=== PATIENT | female | born 2000 | race Caucasian/White ===

== ENCOUNTER 2023-05-10 12:41 | Emergency (ER) | payer MEDICAID, SELFPAY ==
[2023-05-10 12:48] VITALS: BP 121/81; PULSE 71; RESP 15; TEMP 36.6; O2SAT 99; BMI 36.8
[2023-05-10 14:00] VITALS: RESP 16
[2023-05-10 14:02] LABS: Basophils % 0.4 %; Eosinophils # 0.1 10^3/uL (0.0-0.8); Eosinophils % 1.7 %; Hematocrit 43.2 % (37.0-47.0); Hemoglobin 14.1 g/dL (11.5-15.3); Mean Corpuscular HGB Conc 32.6 g/dL (30.0-36.0); Mean Corpuscular Hemoglobin 28.7 pg (28.0-34.0); Mean Platelet Volume 9.2 fL (7.4-10.4); Monocytes # 0.5 10^3/uL (0.2-0.9); Monocytes % 5.7 %; Neutrophils # 5.69 10^3/uL (1.8-7.7); Neutrophils % 68.1 %; Nucleated Red Blood Cells % 0 %; Platelet Count 268 10^3/cmm (130-400); Red Blood Count 4.91 10^6/uL (4.1-5.3); Red Cell Distribution Width 12.3 % (12.1-15.1); White Blood Count 8.4 10^3/uL (4.0-10.0)
--- NOTE | 2023-05-10 14:03 | USR_ITS ---
PROCEDURE INFORMATION: Exam: US , Limited Exam date and time: 05/10/2023 2:52 PM Age: 22 years old Clinical indication: Condition or disease; Lmp or gestational age (weeks): 03/17/2023; Other: Confirm iup; 2nd ; ; Additional info: Confirmed intrauterine LABS AND CLINICAL REPORTS: Last menstrual period start date: 03/17/2023 Gestational age (Established): 7 w 5 d Estimated due date (Established): 12/22/2023 TECHNIQUE: Imaging protocol: Real-time ultrasound of the maternal uterus with image documentation. Exam focused on the clinical indication. COMPARISON: No relevant prior studies available. FINDINGS: Gestation: Intrauterine gestation. BIOMETRY: Gestational age (AUA): 6 w 5 d. EGA based on ultrasound is 6 weeks and 5 days with an SIL of 12/29/2023. MATERNAL: Uterus: Uterus measures 5.1 cm x 10.3 cm . US/US OB limited [id number] IMPRESSION: Intrauterine gestation with an EGA of 6 weeks and 5 days.
--- NOTE | 2023-05-10 14:04 | ED_ITS ---
HPI - General: Chief complaint: Vaginal Bleeding Stated complaint: vaginal bleeding, 7ish weeks Time Seen by Provider: 05/10/23 13:20 Source: patient Mode of arrival: ambulatory History of Present Illness: 22-year-old G2, P1 female at approximately 7 weeks gestation has scheduled appointment with OB but has not yet been seen. Has not had a confirmed intrauterine . Presents emergency room complaining of intermittent bleeding during the first trimester she denies dysuria urgency or frequency no fever sweats chills no other complications or problems she did have problems a subchorionic hemorrhage on her first and had extended periods of bedrest. She also had some issues with progesterone levels. She states she will get what she describes a gush of blood and then some light spotting MD Complaint: vaginal bleeding Onset (ago): hour(s) Location: abdomen Quality: Cramping Relieving factors: none Exacerbating factors: none Vaginal bleeding: light care: none Associated symptoms: Deny abdominal pain, dyspareunia, dysuria, headache(s), malaise, nausea, rash, seizures, short of breath, syncope, vaginal bleeding, vaginal discharge, visual changes, vomiting or weakness Review of Systems Const: Denies: fever(s), chills, fatigue or malaise ENMT: Denies: throat pain, ear or mastoid pain, nasal discharge or nasal congestion Card: Denies: syncope Resp: Denies: dyspnea, productive cough or non-productive cough GI: Denies: abdominal pain, nausea or vomiting : Reports: vaginal bleeding; Denies: dysuria, urinary frequency, urinary urgency, vaginal discharge or dyspareunia Musc: Denies: neck pain or back pain Skin/Breast: Denies: rash or pruritus Neuro: Denies: headache(s) PFSH ED PFSH: Family History Father Diabetes Mother Diabetes Hypertension Thyroid disease Grandmother Diabetes Maternal Stroke Paternal Thyroid disease Maternal Denies family history of Colon cancer Ovarian cancer Heart disease Hypercholesteremia Breast cancer Uterine cancer Physical Exam Const: GENERAL APPEARANCE: cooperative and comfortable ORIENTATION/CONSCIOUSNESS: Yes awake, Yes oriented to person, Yes oriented to place and Yes oriented to time HENMT: COMMON NORMALS: normocephalic, atraumatic and hearing grossly normal bilaterally HEAD & SCALP: normocephalic and atraumatic Resp: COMMON NORMALS: normal respiratory effort, No retractions, No use of accessory muscles and clear to auscultation bilaterally AUSCULTATION: clear to auscultation bilaterally Cardio: COMMON NORMALS: regular rate, regular rhythm and No murmurs present (Cardio) RATE: regular rate RHYTHM: regular rhythm GI: COMMON NORMALS: Soft to palpation and No hepatosplenomegaly present AUSCULTATION: Yes normoactive bowel sounds PALPATION: Yes Soft to palpation, No Tenderness to palpation present (GI), No Guarding due to palpation present (GI) and Yes No hepatosplenomegaly present : SPECULUM EXAM - VAGINA: No vaginal bleeding OB/EXTERNAL & SPECULUM: No vaginal bleeding Extremity: COMMON NORMALS: normal to inspection, capillary refill normal, no clubbing, cyanosis or edema, no calf tenderness and no pedal edema Neuro: SENSORIUM/ORIENTATION: Yes oriented to person, Yes oriented to place and Yes oriented to time Skin: COMMON NORMALS: no rashes or lesions noted GENERAL SKIN EXAM: no rashes or lesions noted Course Vital Signs: Vital signs: Vital Signs Temperature 97.9 F 05/10/23 12:48 Pulse Rate 71 05/10/23 12:48 Respiratory Rate 18 05/10/23 16:31 Blood Pressure 121/81 05/10/23 12:48 Pulse Oximetry 99 05/10/23 12:48 Oxygen Delivery Me thod Room Air 05/10/23 12:48 MDM - OB/Uterine Contractions Medical Decision Making Beta-hCG and ultrasound are reassuring confirms intrauterine on ultrasound. Based on clinical symptoms suspect she has a subchorionic hemorrhage is no active bleeding at this time discharge home follow-up with alcohol law enforcement agent return if has further problems Medical Records I reviewed the patient's medical records. Lab Data I reviewed the patient's lab results. 05/10/23 13:51 05/10/23 13:51 Radiology Impressions Obstetrics Ultrasound 05/10/23 14:03 IMPRESSION: Intrauterine gestation with an EGA of 6 weeks and 5 days. Laboratory Results WBC 8.4 10^3/uL (4.0-10.0) 05/10/23 13:51 RBC 4.91 10^6/uL (4.1-5.3) 05/10/23 13:51 Hgb 14.1 g/dL (11.5-15.3) 05/10/23 13:51 Hct 43.2 % (37.0-47.0) 05/10/23 13:51 MCV 88.0 fl (81-99) 05/10/23 13:51 MCH 28.7 pg (28.0-34.0) 05/10/23 13:51 MCHC 32.6 g/dL (30.0-36.0) 05/10/23 13:51 RDW 12.3 % (12.1-15.1) 05/10/23 13:51 Plt Count 268 10^3/cmm (130-400) 05/10/23 13:51 MPV 9.2 fL (7.4-10.4) 05/10/23 13:51 Neut % (Auto) 68.1 % 05/10/23 13:51 Lymph % (Auto) 24.0 % 05/10/23 13:51 [place] % (Auto) 5.7 % 05/10/23 13:51 Eos % (Auto) 1.7 % 05/10/23 13:51 Baso % (Auto) 0.4 % 05/10/23 13:51 Neut # (Auto) 5.69 10^3/uL (1.8-7.7) 05/10/23 13:51 Lymph # (Auto) 2.0 10^3/uL (0.8-4.8) 05/10/23 13:51 [place] # (Auto) 0.5 10^3/uL (0.2-0.9) 05/10/23 13:51 Eos # (Auto) 0.1 10^3/uL (0.0-0.8) 05/10/23 13:51 Baso # (Auto) 0.0 10^3/uL (0.0-0.1) 05/10/23 13:51 Nucleated RBC % (auto) 0 % 05/10/23 13:51 Nucleated RBCs # 0.0 /100WBC 05/10/23 13:51 Sodium 136 mmol/L (136-145) 05/10/23 13:51 Potassium 3.9 mmol/L (3.5-5.1) 05/10/23 13:51 Chloride 101 mmol/L (98-107) 05/10/23 13:51 Carbon Dioxide 24 mmol/L (22-29) 05/10/23 13:51 Anion Gap 14.9 (5-19) 05/10/23 13:51 BUN 5 mg/dL (6-20) L 05/10/23 13:51 Creatinine 0.6 mg/dL (0.5-0.9) 05/10/23 13:51 GFR Calculation 122.8 mL/min (90-130) 05/10/23 13:51 Glucose 96 mg/dL (65-115) 05/10/23 13:51 Calculated Osmolality 279 mOsm/kg (285-295) L 05/10/23 13:51 Calcium 9.3 mg/dL (8.5-10.5) 05/10/23 13:51 Ser , Semi-Qnt 56800.00 mIU/mL 05/10/23 13:51 Blood Type O Positive 05/10/23 13:47 Rho(D) Type Positive 05/10/23 13:47 Discharge Plan Discharge Patient Disposition: Home Clinical Impression: First trimester bleeding Condition: Stable Prescriptions: No Action prenat.vits,carlton,dts-ttgs-hzmum Tablet 1 tab PO DAILY omeprazole-sodium bicarbonate 40-1.1 mg-gram capsule 1 cap PO DAILY Discharge Orders: Discharge ED (Routine); Ordered 05/10/23 Ordered By: Gilberto France Referrals: Mary Ann Douglas FNP [Primary Care Provider] - Patient Instructions: Opioid Safety, Pain Management Activity Restrictions/Additional Instructions: Pelvic rest avoid any strenuous activities and follow-up with alcohol law enforcement agent as scheduled. Coding Level of Care Code ED Nonprofit Director for [facility]
[2023-05-10 14:45] LABS: Anion Gap 14.9 (5-19); Blood Urea Nitrogen 5 mg/dL (6-20); Calcium 9.3 mg/dL (8.5-10.5); Carbon Dioxide 24 mmol/L (22-29); Chloride 101 mmol/L (98-107); Glomerular Filtration Rate 122.8 mL/min (90-130); Glucose 96 mg/dL (65-115); Osmolality Calculated 279 mOsm/kg (285-295); Potassium 3.9 mmol/L (3.5-5.1); Sodium 136 mmol/L (136-145)
[2023-05-10 16:31] VITALS: RESP 18
== END 2023-05-10 16:32 | disposition home or self-care (01) ==
PROVIDERS: Emergency Provider Family Medicine; PCP Nurse Practitioner Family
DX: O20.9 Hemorrhage in early pregnancy, unspecified (principal); Z3A.01 Less than 8 weeks gestation of pregnancy
CPT/HCPCS: 36415; 76815; 80048; 84702; 85025; 86900; 99284

== ENCOUNTER 2023-05-12 12:09 | Outpatient (CLI) | payer BC, OTHER, SELFPAY ==
--- NOTE | 2023-05-12 13:00 | US_ITS ---
WS: [id number] EARLY OBSTETRICAL ULTRASOUND (<14 WEEKS). HISTORY: O20.9 - Hemorrhage in early , unspecified COMPARISON: 05/10/2023. Transvaginal and transabdominal imaging. Single intrauterine gestational sac is identified. Cardiac activity at 120 BPM. [place]-rump length ayana sures 0.6 cm which corresponds to a gestation of 6w3d. Normal-appearing yolk sac and amnion demonstra wang. No subchorionic hemorrhage. No free fluid. Corpus luteal cyst RIGHT ovary measures 2.5 x 2.4 x 1.6 cm. US/US OB <=14 wk fetus w transvag IMPRESSION: 1. Single intrauterine gestation of 6 weeks 3 days with EDC of 11/01/2024. 2. Normal cardiac activity. 3. No subchorionic hemorrhage. 4. No complications and no evidence for impending spontaneous at this time.
== END 2023-05-12 12:10 | disposition home or self-care (01) ==
PROVIDERS: PCP Nurse Practitioner Family; Visit Provider Obstetrics & Gynecology
DX: O20.9 Hemorrhage in early pregnancy, unspecified (principal); Z3A.01 Less than 8 weeks gestation of pregnancy
CPT/HCPCS: 76801; 76817; 81000; 81025

== ENCOUNTER → 2023-06-09 16:00 | Outpatient (BNVA) | payer BC, OTHER, SELFPAY | PROVIDERS: PCP Nurse Practitioner Family; Visit Provider Obstetrics & Gynecology | DX: Z34.80 Encounter for supervision of other normal pregnancy, unspecified trimester (principal) | CPT/HCPCS: 80307; 84315; 85027; 86592; 86762; 86803; 86850; 86900; 87086; 87340; 87806 ==

== ENCOUNTER → 2023-07-28 08:50 | Outpatient (BNVA) | payer BC, SELFPAY | PROVIDERS: PCP Nurse Practitioner Family; Visit Provider Nurse Practitioner Women's Health | DX: Z34.80 Encounter for supervision of other normal pregnancy, unspecified trimester (principal) | CPT/HCPCS: 82105; 84315; 87491; 87591 ==

== ENCOUNTER → 2023-08-28 09:22 | Outpatient (BNVA) | payer BC, SELFPAY | PROVIDERS: PCP Nurse Practitioner Family; Visit Provider Obstetrics & Gynecology | DX: Z34.92 Encounter for supervision of normal pregnancy, unspecified, second trimester (principal); Z3A.21 21 weeks gestation of pregnancy | CPT/HCPCS: 76805; 84315 ==

== ENCOUNTER 2023-09-17 13:29 | Emergency (ER) | payer BC, MEDICAID, SELFPAY ==
[2023-09-17 13:37] VITALS: BP 117/68; PULSE 78; RESP 18; TEMP 36.9; O2SAT 99; BMI 36.0
--- NOTE | 2023-09-17 13:45 | ED_ITS ---
HPI - Abdominal Pain General: Chief Complaint: Abdominal Pain Stated Complaint: gallbladder pain, n/v, Time Seen by Provider: 09/17/23 13:34 History of Present Illness: 23-year-old female presents emergency department with complaints of right upper abdominal pain. She states she has been seen by a general surgeon as well as her BONDING EQUIPMENT OPERATOR to discuss her gallbladder pain. She states she does have cholestasis and the general surgeon and the patient have both agreed that they will try to wait to do any sort of surgical intervention for her gallbladder. She states she attempted to call her BONDING EQUIPMENT OPERATOR-Dr. Chen today and he had advised her to come to the emergency department to discuss her pain control. Patient states currently her pain is a 0 out of 10. She states that this morning after drinking a cup of coffee she had 9 out of 10 sharp stabbing type pain. She states she did have nausea without vomiting this morning after her right upper quadrant pain. Associated Symptoms: Reports nausea Review of Systems General: Reports: 10 or more systems reviewed and unremarkable except in HPI and below GI: Reports: abdominal pain and nausea PFSH ED PFSH: Family History Father Diabetes Mother Diabetes Hypertension Thyroid disease Grandmother Diabetes Maternal Stroke Paternal Thyroid disease Maternal Denies family history of Colon cancer Ovarian cancer Heart disease Hypercholesteremia Breast cancer Uterine cancer Physical Exam Const: COMMON NORMALS: no acute distress, patient oriented x3 and alert HENMT: COMMON NORMALS: normocephalic and moist oral mucous membranes HEAD & SCALP: normocephalic Eye: COMMON NORMALS: Equal, round and reactive pupils present and EOMs intact bilaterally PUPIL: Yes Equal, round and reactive pupils present Neck/C-Spine: COMMON NORMALS: full ROM and supple Resp: COMMON NORMALS: normal respiratory effort and clear to auscultation bilaterally AUSCULTATION: clear to auscultation bilaterally Cardio: COMMON NORMALS: regular rate, regular rhythm, S1 normal heart sound present, S2 normal heart sound present and Peripheral pulses 2+ throughout RATE: regular rate RHYTHM: regular rhythm HEART SOUNDS: S1 normal heart sound present and S2 normal heart sound present PERIPHERAL PULSES: Peripheral pulses 2+ throughout GI: COMMON NORMALS: Normal to inspection, nondistended, normoactive bowel sounds present and Soft to palpation; negative for non-tender PALPATION: Yes Soft to palpation and Yes Tenderness to palpation present (GI) Details: RUQ : COMMON NORMALS: Yes no CVA tenderness BLADDER/KIDNEY EXAM: Yes no CVA tenderness Back/Pelvis: COMMON NORMALS: no CVA tenderness and thoracic and lumbar spine normal to inspection Extremity: COMMON NORMALS: normal to inspection, full ROM and capillary refill normal Neuro: COMMON NORMALS: patient oriented x3, moves all extremities, no focal motor deficits and gait normal SENSORIUM/ORIENTATION: Yes alert Psych: COMMON NORMALS: mental status grossly normal, Normal thought process present and cooperative THOUGHT PROCESS: Normal thought process present Skin: COMMON NORMALS: no rashes or lesions noted and no jaundice GENERAL SKIN EXAM: no rashes or lesions noted Course Vital Signs: Vital signs: Vital Signs Temperature 98.4 F 09/17/23 13:37 Pulse Rate 78 09/17/23 13:37 Respiratory Rate 18 09/17/23 13:37 Blood Pressure 117/68 09/17/23 13:37 Pulse Oximetry 99 09/17/23 13:37 Oxygen Delivery Me thod Room Air 09/17/23 13:37 MDM - Abdominal Pain Medical Decision Making Physical exam completed and documented, I did contact the patient's BONDING EQUIPMENT OPERATOR Dr. Chen and discussed the patient's plan of care here in the emergency department as well as receive recommendations from Dr. Chen regarding control of the patient's pain. He did request that I provide the patient hydrocodone 5/325 for her pain control. I will provide her prescription at the time of discharge and recommend follow-up with her BONDING EQUIPMENT OPERATOR and general surgeon as planned. I did review the patient's previous medical records and her recent encounter with Dr. Chen as well as her medical record from her general surgeon Dr. Burnette from her visit on 07/10/2023. We will provide the patient with IV access as well as antinausea medication and also obtain laboratory evaluation to include a CBC, CMP, urinalysis and serum hCG quantitative. Medical Records I reviewed the patient's medical records. Lab Data I reviewed the patient's lab results. 09/17/23 14:00 09/17/23 14:00 Labs/Radiology: Laboratory Results WBC 8.23 10^3/uL (3.29-11.43) 09/17/23 14:00 RBC 4.65 10^6/uL (3.85-5.65) 09/17/23 14:00 Hgb 14.00 g/dL (11.27-16.99) 09/17/23 14:00 Hct 42.1 % (36-47) 09/17/23 14:00 MCV 90.5 fl (85-98) 09/17/23 14:00 MCH 30.1 pg (27-33) 09/17/23 14:00 MCHC 33.3 g/dL (30-55) 09/17/23 14:00 RDW 12.9 % (12.1-15.1) 09/17/23 14:00 Plt Count 244 10^3/cmm (157-399) 09/17/23 14:00 MPV 9.6 fL (7.4-10.4) 09/17/23 14:00 Neut % (Auto) 72.3 % 09/17/23 14:00 Lymph % (Auto) 19.8 % 09/17/23 14:00 [place] % (Auto) 6.1 % 09/17/23 14:00 Eos % (Auto) 1.2 % 09/17/23 14:00 Baso % (Auto) 0.2 % 09/17/23 14:00 Neut # (Auto) 5.95 10^3/uL (1.8-7.7) 09/17/23 14:00 Lymph # (Auto) 1.6 10^3/uL (0.8-4.8) 09/17/23 14:00 [place] # (Auto) 0.5 10^3/uL (0.2-0.9) 09/17/23 14:00 Eos # (Auto) 0.1 10^3/uL (0.0-0.8) 09/17/23 14:00 Baso # (Auto) 0.0 10^3/uL (0.0-0.1) 09/17/23 14:00 Nucleated RBC % (auto) 0 % 09/17/23 14:00 Nucleated RBCs # 0.0 /100WBC 09/17/23 14:00 PT 13.00 SECONDS (12.1-14.9) 09/17/23 14:00 INR 0.95 (0.8-1.2) 09/17/23 14:00 Sodium 139 mmol/L (136-145) 09/17/23 14:00 Potassium 3.8 mmol/L (3.5-5.1) 09/17/23 14:00 Chloride 102 mmol/L (98-107) 09/17/23 14:00 Carbon Dioxide 25 mmol/L (22-29) 09/17/23 14:00 Anion Gap 15.8 (5-19) 09/17/23 14:00 BUN 4 mg/dL (6-20) L 09/17/23 14:00 Creatinine 0.4 mg/dL (0.5-0.9) L 09/17/23 14:00 GFR Calculation 194.5 mL/min (90-130) H 09/17/23 14:00 Glucose 69 mg/dL (65-115) 09/17/23 14:00 Calculated Osmolality 283 mOsm/kg (285-295) L 09/17/23 14:00 Calcium 9.5 mg/dL (8.5-10.5) 09/17/23 14:00 Total Bilirubin 0.4 mg/dL (0.15-1.2) 09/17/23 14:00 AST 20 U/L (0-32) 09/17/23 14:00 ALT 26 U/L (0-33) 09/17/23 14:00 Alkaline Phosphatase 108 U/L (35-105) H 09/17/23 14:00 Total Protein 7.2 g/dL (6.6-8.7) 09/17/23 14:00 Albumin 4.3 g/dL (3.5-5.2) 09/17/23 14:00 Globulin 2.9 g/dL (1.3-4.6) 09/17/23 14:00 Ser , Semi-Qnt 3722.00 mIU/mL 09/17/23 14:00 Urine Color Yellow (Yellow) 09/17/23 14:00 Urine Appearance Sl hazy (CLEAR) A 09/17/23 14:00 Urine pH 6 (5-7) 09/17/23 14:00 Ur Specific [place] 1.015 (1.005-1.030) 09/17/23 14:00 Urine Protein Neg (Negative) 09/17/23 14:00 Urine Glucose (UA) Norm (Normal) 09/17/23 14:00 Urine Ketones Negative (Negative) 09/17/23 14:00 Urine Blood Neg (Negative) 09/17/23 14:00 Urine Nitrate Negative (Negative) 09/17/23 14:00 Urine Bilirubin Neg (Negative) 09/17/23 14:00 Urine Urobilinogen Norm mg/dL (Negative) 09/17/23 14:00 Ur Leukocyte Esterase Negative (Negative) 09/17/23 14:00 Amorphous Sediment Not Reportable 09/17/23 14:00 No radiology studies performed this visit Discharge Plan Discharge Patient Disposition: Home Clinical Impression: Biliary colic symptom, Cholestasis during Condition: Stable Prescriptions: New hydrocodone-acetaminophen 5-325 mg tablet 1 tab PO Q6H PRN (Reason: pain) Qty: 14 0RF ondansetron 4 mg tablet,disintegrating 4 mg PO Q6H PRN (Reason: nausea and vomiting) Qty: 14 0RF No Action progesterone micronized [Prometrium] 100 mg capsule 100 mg PO DAILY Qty: 90 3RF Discharge Orders: Discharge ED (Routine); Ordered 09/17/23 Ordered By: Vick Rush Referrals: Mary Ann Douglas FNP [Primary Care Provider] - Discharge Diet: Advance as tolerated Discharge Activity: Resume usual activity Patient Instructions: Abdominal Pain (ED), Opioid Safety, Pain Management Coding Level of Care Code ED Banquet Stewardess for [facility]
[2023-09-17 14:14] LABS: Basophils % 0.2 %; Eosinophils # 0.1 10^3/uL (0.0-0.8); Eosinophils % 1.2 %; Hematocrit 42.1 % (36-47); Lymphocytes # 1.6 10^3/uL (0.8-4.8); Lymphocytes % 19.8 %; Mean Corpuscular HGB Conc 33.3 g/dL (30-55); Mean Corpuscular Hemoglobin 30.1 pg (27-33); Mean Corpuscular Volume 90.5 fl (85-98); Mean Platelet Volume 9.6 fL (7.4-10.4); Monocytes # 0.5 10^3/uL (0.2-0.9); Monocytes % 6.1 %; Neutrophils # 5.95 10^3/uL (1.8-7.7); Neutrophils % 72.3 %; Nucleated Red Blood Cells % 0 %; Platelet Count 244 10^3/cmm (157-399); Red Blood Count 4.65 10^6/uL (3.85-5.65); Red Cell Distribution Width 12.9 % (12.1-15.1); White Blood Count 8.23 10^3/uL (3.29-11.43)
[2023-09-17 14:22] LABS: Bilirubin Urine Neg (Negative); Blood Urine Neg (Negative); Glucose Urine UA Norm (Normal); Ketones Urine Negative (Negative); Leukocyte Esterase Urine Negative (Negative); Nitrate Urine Negative (Negative); Protein Urine Neg (Negative); Specific Gravity, Urine 1.015 (1.005-1.030); Urine Appearance SL Hazy (CLEAR); Urine Color Yellow (Yellow); Urobilinogen Urine Norm (Negative); pH Urine 6 (5-7)
[2023-09-17 14:36] LABS: INR 0.95 (0.8-1.2)
[2023-09-17 14:42] LABS: Alanine Aminotransferase 26 U/L (0-33); Albumin Level 4.3 g/dL (3.5-5.2); Alkaline Phosphatase 108 U/L (35-105); Anion Gap 15.8 (5-19); Aspartate Amino Transferase 20 U/L (0-32); Blood Urea Nitrogen 4 mg/dL (6-20); Calcium 9.5 mg/dL (8.5-10.5); Carbon Dioxide 25 mmol/L (22-29); Chloride 102 mmol/L (98-107); Globulin 2.9 g/dL (1.3-4.6); Glomerular Filtration Rate 194.5 mL/min (90-130); Glucose 69 mg/dL (65-115); Osmolality Calculated 283 mOsm/kg (285-295); Potassium 3.8 mmol/L (3.5-5.1); Sodium 139 mmol/L (136-145); Total Bilirubin 0.4 mg/dL (0.15-1.2); Total Protein 7.2 g/dL (6.6-8.7)
[2023-09-17 14:49] LABS: RBC Urine 0-4 /hpf (0-2); WBC Urine 0-4 /hpf (0-5)
[2023-09-17 14:50] LABS: Add Urine Culture? No; Bacteria Urine 1+ /hpf; Mucus Urine TRACE /hpf
== END 2023-09-17 14:49 | disposition home or self-care (01) ==
PROVIDERS: Emergency Provider Internal Medicine; PCP Nurse Practitioner Family
DX: O26.649 Intrahepatic cholestasis of pregnancy, unspecified trimester (principal); K83.1 Obstruction of bile duct; Z3A.00 Weeks of gestation of pregnancy not specified
CPT/HCPCS: 36415; 80053; 81001; 84702; 85025; 85610; 99283

== ENCOUNTER 2023-09-29 09:52 | Day surgery (SDC) | payer OTHER, BC, SELFPAY ==
[2023-09-29] VITALS (10 sets, daily range): BP systolic 110–128; BP diastolic 73–88; PULSE 69–83; RESP 16–25; TEMP 36.3–36.7; O2SAT 95–100; BMI 36.0
--- NOTE | 2023-09-29 10:31 | W.PM.OPSUD ---
Surgery/Procedure H&P Update DATE OF PROCEDURE: September 29, 2023 DATE H&P PERFORMED: 09/25/23 H&P UPDATE INFORMATION: I have reviewed H&P completed within last 30 days, I have examined patient prior to procedure and Changes to prior documentation as noted here CHANGES TO PREVIOUS DOCUMENTATION: Laparoscopic cholecystectomy The risks and benefits of the procedure, including but not limited to, bleeding, infection, scar, numbness, pain, damage to surrounding structures, damage to common bile duct requiring additional surgery, conversion to an open procedure, were explained to the patient. He is understanding of the risks and wishes to proceed. PLANNED PROCEDURE: Operation Date: 09/29/23 13:00 Proposed Procedures p 60308 lap margi K80.20(Not Applicable) - Washington Burnette DO
--- NOTE | 2023-09-29 10:37 | ANES.PREANE2 ---
Pre-Anesthetic Assessment Height/Weight: Height 1.63 m Temp Pulse Resp BP Pulse Ox O2 Del Method 97.3 F L 82 18 128/78 97 Room Air 09/29/23 10:13 09/29/23 10:13 09/29/23 10:13 09/29/23 10:13 09/29/23 10:13 09/29/23 10:14 Operation Date: 09/29/23 13:00 [place] Procedures [place] 83027 lap margi K80.20(Not Applicable) - Washington Burnette DO Familial anesthetic complications: None Was Beta Sindy taken within 24 hours: N/A Was Clonidine taken within 24 hours: N/A Last intake: Intake Last Liquid Date 09/29/23 Last Liquid Time 07:00 Last Solid Date 09/28/23 Last Solid Time 18:00 Social No alcohol and No tobacco Exam alert, oriented x 3, clear to auscultation bilaterally and regular rate & rhythm Airway Mallampati: Class II Dentition: false GI Gastroesophageal Reflux Disease Anesthetic Plan ASA status: 1 Anesthesia: General Risk of > 500 ml blood loss (7ml/kg in children): No Medications/Allergies Home Medications Medication Instructions Recorded Confirmed Last Taken Type hydrocodone 5 mg-acetaminophen 325 1 tab PO Q6H PRN pain #14 tabs 09/17/23 09/26/23 09/25/23 Rx mg tablet ondansetron 4 mg disintegrating 4 mg PO Q6H PRN nausea and 09/17/23 09/25/23 Unknown Rx tablet vomiting #14 tabs docosahexaenoic acid 200 mg mg PO 09/22/23 09/25/23 09/28/23 History capsule ( DHA) pantoprazole 40 mg tablet,delayed 40 mg PO BID 6 weeks #84 tabs 09/25/23 09/26/23 09/28/23 Rx release (Protonix) Allergies Allergy/AdvReac Type Severity Reaction Status Date / Time No Known Allergies Allergy Verified 09/29/23 10:06 [facility] Anesthesia Family History Father Diabetes Mother Diabetes Hypertension Thyroid disease Grandmother Diabetes Maternal Stroke Paternal Thyroid disease Maternal Denies family history of Colon cancer Ovarian cancer Heart disease Hypercholesteremia Breast cancer Uterine cancer Data Anesthesia Cardiac Studies: No Data to Display
[2023-09-29] MEDS: sodium chloride 0.9% 1,000 ML 30 ML IV (10:42)
--- NOTE | 2023-09-29 10:54 | SUR.PREOP ---
RN FROM OB HERE TO LISTEN TO HEART SOUNDS-140
[2023-09-29] MEDS: ceFAZolin 2,000 MG in sodium chloride 0.9% (plus) 50 ML 100 MG IV (11:04)
[2023-09-29] MEDS: lidocaine-epi 2% 20 mL INJ INJECTION (11:30)
--- NOTE | 2023-09-29 11:52 | P.OP_ITS ---
Operative Report Date of procedure: September 29, 2023 Pre-op diagnosis: Symptomatic cholelithiasis Post-op diagnosis: same Procedure done: Laparoscopic cholecystectomy Implants: Surgicel Specimens removed/disposition: Gallbladder Surgeon: Washington Burnette DO Anesthesia: General Estimated blood loss (mL): 5 Complications: None apparent Brief History: This is a very pleasant 23-year-old female with symptomatic cholelithiasis. She is but could no longer tolerate the pain. Risk and benefits of laparoscopic cholecystectomy, including but not limited to, scar, numbness, pain, conversion to an open procedure, damage surrounding structures, damage to common bile duct requiring further surgery, demise especially, were explained to the patient. She was understanding the risks and wishes to proceed Procedure: Patient was wheeled into the operative room and placed on the OR table in a supine position. Abdomen was inspected prepped and draped in usual sterile fashion. Time-out was performed and all present were in agreement. A 15 blade scalp was used to make a stab incision in the left upper quadrant and intra- abdominal insufflation was achieved using a Veress needle. A 5 mm trocar was then placed into this location under Optiview.. After localizing the tissue incisions were made and a 5 millimeter trocar was placed into the supraumbilical region as well as 2 in the right upper quadrant. Extreme care was taken to avoid the uterus. A 12 millimeter trocar was placed in the epigastrium. Gallbladder was grasped and elevated. The triangle of [place] was carefully dissected using blunt dissection and electrocautery until the triangle of [place] clearly identified. The cystic duct was clipped proximally and double clipped distally. The duct was then ligated proximally. The cystic artery was doubly clipped and ligated. The gallbladder was then removed from the liver bed using electrocautery. The gallbladder was removed from the abdomen using an Endo- Catch bag through the epigastric incision. The liver bed was inspected and no bleeding was seen. The abdomen was irrigated and suctioned. All ports removed. Skin was washed and dried. Incisions were closed with 4-0 Monocryl in a subcuticular interrupted fashion. Skin glue was applied. Patient tolerated the procedure well. Suprapubic region
--- NOTE | 2023-09-29 12:16 | PC.NURSE ---
1215 - Mary in OB notified of need to monitor heart tones per anesthesia order
--- NOTE | 2023-09-29 12:30 | PC.NURSE ---
1230 - AKUA Castaneda with patient to monitor heart tones - heart tones normal at current time
--- NOTE | 2023-09-29 12:45 | ANE.PACU2 ---
Inpatient post-anesthesia follow up: Airway intact: Yes Vital signs: Temperature 98 F Pulse Rate 81 Respiratory Rate 18 Blood Pressure 123/88 Pulse Oximetry 95 Oxygen Delivery Me thod Room Air Oxygen Flow Rate 6 Fraction of Inspir ed Oxygen Hydration adequate: Yes Nausea and vomiting: No Pain level: 1 Mental status: Baseline
[2023-09-29] MEDS: HYDROcodone-acetaminophen 10-325 mg Tablet 1 TAB PO (13:21)
--- NOTE | 2023-09-29 13:58 | SUR.PHASEII ---
attempted to call dr. kiran office to make a1 week follow up. busy multiple times. family reports they will call and make the appointment
== END 2023-09-29 14:00 | disposition home or self-care (01) ==
PROVIDERS: PCP Nurse Practitioner Family; Visit Provider Surgery
PROC: 0FT44ZZ Resection of Gallbladder, Percutaneous Endoscopic Approach (ICD-10-PCS; CPT 47562; principal; 2023-09-29 12:50)
DX: O99.612 Diseases of the digestive system complicating pregnancy, second trimester (principal); Z3A.27 27 weeks gestation of pregnancy; K80.10 Calculus of gallbladder with chronic cholecystitis without obstruction; K21.9 Gastro-esophageal reflux disease without esophagitis
CPT/HCPCS: 47562; 88304; J0330; J0690; J1100; J1200; J1885; J2250; J2405; J2704; J3010; J3490; J7030

== ENCOUNTER → 2023-10-13 10:20 | Outpatient (BNVA) | payer BC, OTHER, SELFPAY | PROVIDERS: PCP Nurse Practitioner Family; Visit Provider Obstetrics & Gynecology | DX: Z34.80 Encounter for supervision of other normal pregnancy, unspecified trimester (principal) | CPT/HCPCS: 82950; 84315; 85025 ==

== ENCOUNTER → 2023-11-28 17:14 | Outpatient (BNVA) | payer BC, OTHER, SELFPAY | PROVIDERS: PCP Nurse Practitioner Family | DX: J02.9 Acute pharyngitis, unspecified (principal) | CPT/HCPCS: 87071; 87880 ==

== ENCOUNTER 2023-12-04 11:19 | Outpatient (CLI) | payer BC, OTHER, SELFPAY ==
[2023-12-04 11:42] VITALS: RESP 17
[2023-12-04 11:49] VITALS: BMI 39.3
[2023-12-04 12:12] VITALS: BP 131/86; PULSE 75; RESP 17; TEMP 35.8
== END 2023-12-04 12:12 | disposition home or self-care (01) ==
LOC: OPOB 11:26 → OBGYN 11:37
PROVIDERS: PCP Nurse Practitioner Family; Visit Provider Obstetrics & Gynecology
DX: O36.8190 Decreased fetal movements, unspecified trimester, not applicable or unspecified (principal); Z3A.00 Weeks of gestation of pregnancy not specified
CPT/HCPCS: 59025; 99211

== ENCOUNTER 2023-12-13 15:55 | Emergency (ER) | payer BC, SELFPAY ==
[2023-12-13 16:04] VITALS: BP 129/86; PULSE 84; RESP 18; TEMP 36.7; O2SAT 98; BMI 36.8
--- NOTE | 2023-12-13 17:00 | ED_ITS ---
HPI - Anxiety General: Chief Complaint: Anxiety Stated Complaint: stress, 37 weeks preg, sent by dr Elias Seen by Provider: 12/13/23 16:21 History of Present Illness: Presents to the ER secondary to having multiple anxiety attacks and insomnia. Patient is approximate 37 weeks being followed by Dr. Chen. Patient is already ready tried Benadryl, Unisom and Ambien. Benadryl and Unisom do not help at all and the Ambien makes her groggy but does not help her anxiety. Patient does not have a history of anxiety this all started about a week ago for an unknown reason. Patient is never been on any type of anxiety medicine. Review of Systems General: Reports: 10 or more systems reviewed and unremarkable except in HPI and below PFSH ED PFSH: Surgical History Hx laparoscopic cholecystectomy 09/29/23 Dr Burnette Family History Father Diabetes Mother Diabetes Hypertension Thyroid disease Grandmother Diabetes Maternal Stroke Paternal Thyroid disease Maternal Denies family history of Colon cancer Ovarian cancer Heart disease Hypercholesteremia Breast cancer Uterine cancer Physical Exam Const: COMMON NORMALS: no acute distress, average body habitus, patient oriented x3, no limitations, healthy appearing, alert and well nourished Neck/C-Spine: COMMON NORMALS: no JVD Chest: COMMONS NORMALS: normal inspection of the chest and normal palpation of entire chest wall Resp: COMMON NORMALS: normal respiratory effort, No retractions, No use of accessory muscles and clear to auscultation bilaterally AUSCULTATION: clear to auscultation bilaterally Cardio: COMMON NORMALS: no JVD, regular rate, regular rhythm, S1 normal heart sound present, S2 normal heart sound present, No gallops present (Cardio), No clicks present (Cardio), No murmurs present (Cardio) and No rub (Cardio) RATE: regular rate RHYTHM: regular rhythm HEART SOUNDS: S1 normal heart sound present and S2 normal heart sound present GI: COMMON NORMALS: Normal to inspection, nondistended, normoactive bowel sounds present (Gravid), Soft to palpation, non-tender and No hepatosplenomegaly present PALPATION: Yes Soft to palpation and Yes No hepatosplenomegaly present Neuro: COMMON NORMALS: patient oriented x3 SENSORIUM/ORIENTATION: Yes alert Course Vital Signs: Vital signs: Vital Signs Temperature 98.0 F 12/13/23 16:04 Pulse Rate 84 12/13/23 16:04 Respiratory Rate 18 12/13/23 16:04 Blood Pressure 129/86 12/13/23 16:04 Pulse Oximetry 98 12/13/23 16:04 Oxygen Delivery Me thod Room Air 12/13/23 16:04 MDM - Anxiety Medical Decision Making Patient has anxiety panic attacks and insomnia. Patient failed 2 outpatient medicines as well as Ambien. Patient is 37 weeks . We will try buspirone to help with the anxiety and tell her to continue her Ambien to help with insomnia. Patient should follow-up with her PCP and/or her INFORMATION AND DATA ARCHITECT ANALYST for further evaluation and treatment. Differential Diagnosis Likely acute anxiety; Unlikely hyperventilation or panic disorder Medical Records I reviewed the patient's medical records. Lab Data I reviewed the patient's lab results. No radiology studies performed this visit Discharge Plan Discharge Patient Disposition: Home Clinical Impression: Acute anxiety, Condition: Stable Prescriptions: No Action DHA 200 mg capsule PO Abrysvo 120 mcg/0.5 mL recon soln 0.5 ml IM ONCE Qty: 1 0RF amoxicillin 500 mg tablet 1,000 mg PO Q12H 10 Days Qty: 40 0RF (DME) blood-glucose meter [Blood Glucose Monitoring] Kit See Rx Instructions .MEDSUPPLY Qty: 1 0RF Rx Instructions: please include test strips, lancets, and alcohol wipes zolpidem 5 mg tablet 5 mg PO .qhs PRN (Reason: insomnia) Qty: 20 0RF Rx Instructions: take QHS PRN Discharge Orders: Discharge ED (Routine); Ordered 12/13/23 Ordered By: Martínez Truong Referrals: Mary Ann Douglas FNP [Primary Care Provider] - 1 week Patient Instructions: Anxiety (ED) Activity Restrictions/Additional Instructions: Please try new medicine called buspirone. You will take 1 to 2 tablets approximately 1 hour before bedtime to help with the anxiety and panic attacks that occur at night. Please continue your Ambien 5 mg that you may also take 1 to 2 tablet of it 1 hour before bedtime. Please follow-up with your INFORMATION AND DATA ARCHITECT ANALYST and/or family practice physician for further evaluation and treatment. Coding Level of Care Code ED Records Management Assistant for Clover Pfeiffer
== END 2023-12-13 17:23 | disposition home or self-care (01) ==
PROVIDERS: Emergency Provider Emergency Medicine; PCP Nurse Practitioner Family
DX: O99.343 Other mental disorders complicating pregnancy, third trimester (principal); Z3A.37 37 weeks gestation of pregnancy
CPT/HCPCS: 99283

== ENCOUNTER 2023-12-15 10:40 | Outpatient (CLI) | payer BC, SELFPAY ==
[2023-12-15 11:09] VITALS: BMI 38.7
== END 2023-12-15 11:30 | disposition home or self-care (01) ==
LOC: OPOB 10:41 → OBGYN 10:42
PROVIDERS: PCP Nurse Practitioner Family; Visit Provider Obstetrics & Gynecology
DX: O36.8190 Decreased fetal movements, unspecified trimester, not applicable or unspecified (principal); Z3A.00 Weeks of gestation of pregnancy not specified
CPT/HCPCS: 59025; 84315; 87086; 99211

== ENCOUNTER 2023-12-30 18:09 | Inpatient (IN) | payer BC, MEDICAID, SELFPAY ==
[2023-12-30] VITALS (20 sets, daily range): BP systolic 89–154; BP diastolic 45–92; PULSE 69–94; RESP 16; TEMP 36.2; O2SAT 94–99; BMI 40.3
[2023-12-30 18:27] LABS: Basophils % 0.3 %; Eosinophils # 0.1 10^3/uL (0.0-0.8); Eosinophils % 1.5 %; Hematocrit 42.9 % (36-47); Lymphocytes # 1.8 10^3/uL (0.8-4.8); Lymphocytes % 23.4 %; Mean Corpuscular HGB Conc 33.6 g/dL (30-55); Mean Corpuscular Hemoglobin 29.8 pg (27-33); Mean Corpuscular Volume 88.8 fl (85-98); Mean Platelet Volume 10.8 fL (7.4-10.4); Monocytes # 0.5 10^3/uL (0.2-0.9); Monocytes % 6.4 %; Neutrophils # 5.11 10^3/uL (1.8-7.7); Neutrophils % 68.1 %; Nucleated Red Blood Cells % 0 %; Platelet Count 143 10^3/cmm (157-399); Red Blood Count 4.83 10^6/uL (3.85-5.65); Red Cell Distribution Width 12.7 % (12.1-15.1); White Blood Count 7.49 10^3/uL (3.29-11.43)
[2023-12-30] MEDS: dextrose 5%-lactated ringers 1,000 ML 125 ML IV (18:29)
[2023-12-30] MEDS: oxytocin 30 UNIT/500 ML BAG IV (18:30)
--- NOTE | 2023-12-30 18:51 | PC.NURSE ---
Call to Dr Chen, per doctor pt is GBS negative, swab done 11/28/23
--- NOTE | 2023-12-30 18:55 | PC.NURSE ---
upon further investigation strep swab done 11/28/23 was a rapid throat swab for group A strep. pt questioned, denies having vaginal/rectal swab with this . called Dr Chen back, orders to start GBS protocol.
[2023-12-30] MEDS: ampicillin 2,000 MG in sodium chloride 0.9% (plus) 50 ML 100 MG IV (19:06)
--- NOTE | 2023-12-30 19:22 | P.HP_ITS ---
Providers/Chief Complaint 2 Admitting Physician: Orlando Chen MD Primary VEIN ACCESS TECHNICIAN: Orlando Chen MD Primary Care Provider: Mary Ann Douglas Chief Complaint: IOL HPI VEIN ACCESS TECHNICIAN History of Present Illness 23 y.o. EDC January 02, 2024, c/w 6-week sono At 39 w 4 d + active movements No obstetric complications during this Now admitted for elective induction of labor Patient requested labor induction due to ?s work schedule POBHx: 1 y.o. male; [place], 7 lbs 2 oz; PMHx: + gallstones PSHx: cholecystectomy September 29, 2023 NKDA Present Details : 2 Para: 1 Medications/Allergies Home Medications Medication Instructions Recorded Confirmed Last Taken Type docosahexaenoic acid 200 mg mg PO 09/22/23 12/22/23 09/28/23 History capsule ( DHA) RSV vac, preF A and preF B(PF) 120 0.5 ml IM ONCE #1 ea 11/24/23 12/22/23 Unknown Rx mcg/0.5 mL IM solution (Abrysvo) blood-glucose meter (Blood Glucose #1 ea 11/24/23 12/22/23 Unknown Rx Monitoring kit) zolpidem 5 mg tablet 5 mg PO .qhs PRN insomnia #20 tabs 12/11/23 12/22/23 Unknown Rx buspirone 5 mg tablet See Rx Instructions .Route 12/22/23 12/22/23 Unknown Rx .COMPLEX PRN anxiety #20 tabs zolpidem 10 mg tablet 10 mg PO .qhs PRN insomnia #30 tabs 12/22/23 12/22/23 Unknown Rx Allergies Allergy/AdvReac Type Severity Reaction Status Date / Time No Known Allergies Allergy Verified 12/22/23 14:48 PFSH VEIN ACCESS TECHNICIAN 2 PFSH: Surgical History Hx laparoscopic cholecystectomy 09/29/23 Dr Burnette Family History Father Diabetes Mother Diabetes Hypertension Thyroid disease Grandmother Diabetes Maternal Stroke Paternal Thyroid disease Maternal Denies family history of Colon cancer Ovarian cancer Heart disease Hypercholesteremia Breast cancer Uterine cancer History History History 2 2 Term 1 0 Miscarriages/Ectopic 0 Living Children 1 Care SIL Calculator 2 Estimated Delivery Date Method Current WG Current Estimate 01/02/24 Ultrasound #1 39w 4d Other Estimates 12/22/23 LMP (Certain) 41w 1d 01/02/24 Ultrasound #2 39w 4d Vitals/I&O/Wt Last Vital Signs Temp 97.2 F L 12/30/23 17:33 Pulse 88 12/30/23 19:03 BP 115/69 12/30/23 19:03 O2 Del Method Room Air 12/30/23 18:00 Weight last 48 hrs Weight 235 lb Physical Exam 2 Narrative: Weight 230 lbs; 5?4? VS normal Comfortable, awake, alert HEENT: normal Lungs: clear Cor: RRR Abd: nontender FH 37 cm, cephalic FHTs normal Cervix: 2 cm / 90 / -2 / posterior Ext: no edema External monitor: heart tracing good variability, + accelerations Data 12/30/23 18:15 Results Labs OB ([facility]): 2 Obstetrics US 05/12/23 Blood Type O Positive 06/09/23 Antibody Screen Negative 06/09/23 Hct 42.9 % (36-47) 12/30/23 Hgb 14.40 g/dL (11.27-16.99) 12/30/23 Rho(D) Type Positive 06/09/23 Plt Count 143 10^3/cmm (157-399) L 12/30/23 Hep Bs Antigen Non-reactive (Nonreactive) 06/09/23 Hepatitis C Antibody Non-reactive (Nonreactive) 06/09/23 Rubella IgG Antibody > 500.0 IU/mL (0.0-10.0) H 06/09/23 RPR Nonreactive (Nonreactive) 06/09/23 HIV 1&2 Ab & HIV 1 Ag Non-reactive (Non-Reactiv) 06/09/23 C.trachomatis RNA (TMA) Not detected (NOT DETECTED) N.gonorrhoeae RNA (TMA) Not detected (NOT DETECTED) Chlamydia/GC Comment See note 07/28/23 Cystic Fibrosis Screen Carrier 06/09/23 Gest Glucose Tolerance 167 mg/dL (70-139) H 10/13/23 Ser , Semi-Qnt 3722.00 mIU/mL 09/17/23 HCG, Qual Positive (Negative) H 05/12/23 Urine Opiates Screen Negative ng/mL (Negative) 06/09/23 Ur Barbiturates Screen Negative ng/mL (Negative) 06/09/23 Ur Phencyclidine Scrn Negative ng/mL (Negative) 06/09/23 Ur Amphetamines Screen Negative ng/mL (Negative) 06/09/23 U Benzodiazepines Scrn Negative ng/mL (Negative) 06/09/23 Urine Cocaine Screen Negative ng/mL (Negative) 06/09/23 U Marijuana (THC) Screen Negative ng/mL (Negative) 06/09/23 Micro Urine Specimen 12/15/23 A&P Assessment and plan (1) Encounter for induction of labor: 39 w 4 d Admit for induction of labor Plan start Pitocin GBS not done Will start antibiotics for unknown GBS Attestations 2 Medical Necessity Statement*: patient at 39 w 4 d, admitted for induction of labor Coding Level of Care Code Acute Code for Chg Fwd Diagnoses Encounter for induction of labor Z34.90 Time Spent (min) 30
--- NOTE | 2023-12-30 19:23 | P.ANESASSM_ITS ---
Pre-Anesthetic Assessment Height/Weight: Height 1.63 m Weight 106.594 kg Temp Pulse BP O2 Del Method 97.2 F L 88 115/69 Room Air 12/30/23 17:33 12/30/23 19:03 12/30/23 19:03 12/30/23 18:00 Familial anesthetic complications: None Was Beta Sindy taken within 24 hours: N/A Was Clonidine taken within 24 hours: N/A Last intake: 1700 solids and liquids Social No alcohol and No tobacco Exam alert, oriented x 3, clear to auscultation bilaterally and regular rate & rhythm Airway Submandibular: within normal limits Cervical ROM: within normal limits Mallampati: Class II Comments: Comments: Upper denture History/ROS No significant history except as noted and No significant complaints Pulmonary None reported CV/HEM None reported None reported Hepatic None reported GI Gastroesophageal Reflux Disease Metabolic Morbid Obesity and Thyroid Disease Musc/skel Scoliosis (Slight case per patient) Neuropsych Anxiety Anesthetic Plan ASA status: 3 Anesthesia: Anesthesia Evaluation, General and Regional (specify below) (Epidural) Risk of > 500 ml blood loss (7ml/kg in children): No Medications/Allergies Home Medications Medication Instructions Recorded Confirmed Last Taken Type docosahexaenoic acid 200 mg mg PO 09/22/23 12/22/23 09/28/23 History capsule ( DHA) RSV vac, preF A and preF B(PF) 120 0.5 ml IM ONCE #1 ea 11/24/23 12/22/23 Unknown Rx mcg/0.5 mL IM solution (Abrysvo) blood-glucose meter (Blood Glucose #1 ea 11/24/23 12/22/23 Unknown Rx Monitoring kit) zolpidem 5 mg tablet 5 mg PO .qhs PRN insomnia #20 tabs 12/11/23 12/22/23 Unknown Rx buspirone 5 mg tablet See Rx Instructions .Route 12/22/23 12/22/23 Unknown Rx .COMPLEX PRN anxiety #20 tabs zolpidem 10 mg tablet 10 mg PO .qhs PRN insomnia #30 tabs 12/22/23 12/22/23 Unknown Rx Allergies Allergy/AdvReac Type Severity Reaction Status Date / Time No Known Allergies Allergy Verified 12/22/23 14:48 Current Medications Generic Name Dose Route Start Last Admin Trade Name Freq PRN Reason Stop Dose Admin Dextrose/Lactated Ringer's 1,000 mls @ 125 mls/hr 12/30/23 18:00 12/30/23 18:29 Dextrose 5%-Lactated Ringers IV 125 mls/hr .Q8H SONALI Administration Oxytocin 30 unit in 500 mls @ 1 mls/hr 12/30/23 18:00 12/30/23 18:30 Pitocin IV 1 milliunit/min .Q24H SONALI 1 mls/hr Administration Protocol 1 MILLIUNIT/MIN Ampicillin Sodium 2,000 mg/ 50 mls @ 100 mls/hr 12/30/23 18:57 12/30/23 19:06 Sodium Chloride IV 12/30/23 19:26 100 mls/hr ONCE ONE Administration Protocol PFSH Anesthesia Surgical History Hx laparoscopic cholecystectomy 09/29/23 Dr Burnette Family History Father Diabetes Mother Diabetes Hypertension Thyroid disease Grandmother Diabetes Maternal Stroke Paternal Thyroid disease Maternal Denies family history of Colon cancer Ovarian cancer Heart disease Hypercholesteremia Breast cancer Uterine cancer Female Reproductive History : 2 Data Anesthesia 12/30/23 18:15 Short CBC 12/30/23 Range/Units 18:15 WBC 7.49 (3.29-11.43) 10^3/uL Hgb 14.40 (11.27-16.99) g/dL Hct 42.9 (36-47) % MCV 88.8 (85-98) fl Plt Count 143 L (157-399) 10^3/cmm Neut % (Auto) 68.1 % Neut # (Auto) 5.11 (1.8-7.7) 10^3/uL Cardiac Studies: 2 No Data to Display
[2023-12-30] MEDS: lactated ringers 1,000 ML 999 ML IV ×2 (22:30→23:35)
[2023-12-30] MEDS: ampicillin 1,000 MG in sodium chloride 0.9% (plus) 50 ML 100 MG IV (22:51)
[2023-12-30] MEDS: ROPivacaine syringe 100 MG/50 ML SYRINGE 10 MG EPIDURAL (23:17)
[2023-12-30] MEDS: ondansetron 2 mg/ML SDV 2 mL 4 MG IVP (23:24)
--- NOTE | 2023-12-30 23:33 | ANES.PROC ---
Anesthesia Procedures Procedure/Date: 12/30/23 Epidural: Time Out Performed: Yes Consents Signed: Procedure Consent Consent: requested by attending/covering physician, from patient, risks and benefits reviewed and patient agrees to proceed Lumbar Level: L3-L4 Epidural position: sitting Epidural procedure: sterile prep of area, 1% lidocaine to numb the area, 18 g needle, neg for paresthesia, test dose given, 1.5% xylocaine 1:200k epi, placed PCEA, no systemic response, sterile dressing applied and 0.2% Ropiavacaine @ mls/hr (10) Additional Comments: SOLIS at 6cm, cath at 11cm, bolused 5mls of 2% lido PF
[2023-12-31] VITALS (80 sets, daily range): BP systolic 90–133; BP diastolic 50–90; PULSE 63–173; RESP 16; TEMP 35.9–37.2; O2SAT 98; BMI 40.3
[2023-12-31] MEDS: ROPivacaine syringe 100 MG/50 ML SYRINGE 10 MG EPIDURAL ×3 (03:50→13:27)
[2023-12-31] MEDS: ampicillin 1,000 MG in sodium chloride 0.9% (plus) 50 ML 100 MG IV ×3 (03:50→11:35)
[2023-12-31] MEDS: ondansetron 2 mg/ML SDV 2 mL 4 MG IVP (06:42)
[2023-12-31] MEDS: dextrose 5%-lactated ringers 1,000 ML 125 ML IV (08:05)
--- NOTE | 2023-12-31 13:15 | PM.OBGYPN ---
MEMBERSHIP SALES ADVISOR Subjective Subjective: Interval history: fetus reassuring patient comfortable with epidural pitocin at 20 mU cervix: 5 cm / 90% / -2 station AROM, trace meconium continue pitocin Labor: Station: -2 Amniotic Membrane Status: Ruptured Monitor Mode: External Contraction Pattern: Irregular Status: Category I Vitals/I&O/Wt Last Vital Signs Temp 97.7 F 12/31/23 13:07 Pulse 92 12/31/23 14:00 Resp 16 12/30/23 17:33 BP 129/90 12/31/23 14:00 Pulse Ox 98 12/30/23 23:11 O2 Del Method Room Air 12/30/23 18:00 12/30/23 12/31/23 12/31/23 22:59 06:59 14:59 Intake Total 25.500 / 25.500 2207.083 / 2232.583 374.667 / 374.667 Output Total 500 / 500 Balance 25.500 / 25.500 1707.083 / 1732.583 374.667 / 374.667 Weight last 48 hrs Weight 235 lb Weight 235 lb Physical Exam Urinary Catheter Management: Berrios: Cath Placed During This Visit: yes Reason for Continuing Indwelling Catheter: Required Immobilization for Trauma or Surgery or Anesthesia Urinary Catheter Date of Insertion: 12/30/23 Urinary Catheter Time of Insertion: 23:40 Data 12/30/23 18:15 A&P Assessment and plan (1) Encounter for induction of labor: Attestations Medical Necessity Statement*: patient at 39+ weeks, admitted for induction of labor Coding Level of Care Code Acute Code for Chg Fwd Diagnoses Encounter for induction of labor Z34.90 Time Spent (min) 20
--- NOTE | 2023-12-31 14:13 | PM.MISC ---
Miscellaneous Note Purpose of Documentation: Epidural Bolus Note: Increasing discomfort, bolused 100mcg fent and 5mls of 2% lido PF.
--- NOTE | 2023-12-31 16:20 | PM.DELIVERY ---
Delivery Note: Date of delivery: December 31, 2023 Pre-delivery diagnoses: 39 w 4 d induction of labor Post-delivery diagnoses: 39 w 4 d induction of labor vaginal delivery second-degree perineal laceration, repaired Procedure: induction of labor vaginal delivery repair of second-degree perineal laceration Op report anesthesia: Epidural Delivering Physician: Orlando Chen MD Estimated blood loss (mL): 300 Findings: , vigorous male infant Normal placenta and cord Cord gases and blood obtained Second-degree perineal laceration repaired EBL: 300 cc No complications Pre-Delivery Course: normal labor course Delivery: vaginal Post-Delivery Status: good History History History 2 Term 1 0 Miscarriages/Ectopic 0 Living Children 1 A&P Assessment and plan (1) Vaginal delivery: (2) Second degree perineal laceration: Coding Level of Care Code Acute Code for Chg Fwd Diagnoses Vaginal delivery O80 Second degree perineal laceration O70.1 Time Spent (min) 60
[2023-12-31] MEDS: oxytocin 30 UNIT/500 ML BAG 600 UNIT IV (16:25)
[2023-12-31] MEDS: docusate sodium 100 mg Capsule PO (18:15)
[2023-12-31] MEDS: lanolin oint 7 gm 1 APPLIC TOPICAL (18:15)
[2023-12-31] MEDS: benzocaine-menthol 78 gm Canister 1 SPRAY TOPICAL (18:16)
[2023-12-31] MEDS: ibuprofen 800 mg tablet PO (20:05)
[2024-01-01 01:33] VITALS: BP 124/87; PULSE 60; RESP 16; TEMP 36.4; O2SAT 96
[2024-01-01 03:23] VITALS: BP 107/70; PULSE 69; RESP 16; O2SAT 96
[2024-01-01 05:43] VITALS: BP 116/80; PULSE 61; RESP 16; TEMP 36.7; O2SAT 96
[2024-01-01 05:52] LABS: Hematocrit 39.2 % (36-47); Mean Corpuscular HGB Conc 33.2 g/dL (30-55); Mean Corpuscular Hemoglobin 30.1 pg (27-33); Mean Corpuscular Volume 90.7 fl (85-98); Mean Platelet Volume 10.8 fL (7.4-10.4); Platelet Count 134 10^3/cmm (157-399); Red Blood Count 4.32 10^6/uL (3.85-5.65); Red Cell Distribution Width 12.8 % (12.1-15.1); White Blood Count 9.05 10^3/uL (3.29-11.43)
[2024-01-01] MEDS: prenatal vitamin Capsule 1 CAP PO (09:00)
[2024-01-01] MEDS: docusate sodium 100 mg Capsule PO (09:01)
[2024-01-01] MEDS: ibuprofen 800 mg tablet PO ×2 (09:01→15:22)
--- NOTE | 2024-01-01 09:37 | ANE.PACU2 ---
Inpatient post-anesthesia follow up: Airway intact: Yes Vital signs: Temperature 98.0 F Pulse Rate 61 Respiratory Rate 16 Blood Pressure 116/80 Pulse Oximetry 96 Oxygen Delivery Me thod Room Air Oxygen Flow Rate Fraction of Inspir ed Oxygen Hydration adequate: Yes Nausea and vomiting: No Pain level: 2 Mental status: Baseline Epidural Start/End: Epidural Start Date: 12/30/23 Epidural Start Time: 23:00 Epidural End Date: 12/31/23 Epidural End Time: 16:20
[2024-01-01 10:00] VITALS: BP 125/84; PULSE 72; RESP 16; TEMP 36.6; O2SAT 97
[2024-01-01 10:25] LABS: Chlamydia Trachomatis RNA TMA NOT DETECTED (NOT DETECTED); Neisseria Gonorrhoeae RNA, TMA NOT DETECTED (NOT DETECTED)
--- NOTE | 2024-01-01 13:40 | P.PN_ITS ---
HEALTH PROGRAM DIRECTOR Subjective 2 Subjective: Interval history: no c/o no bleeding, pain eating, voiding, ambulating well caring for without any problems Labor: Station: +2 Amniotic Membrane Status: Ruptured Monitor Mode: External Contraction Pattern: Regular Status: Category I Vitals/I&O/Wt Last Vital Signs Temp 97.9 F 01/01/24 10:00 Pulse 72 01/01/24 10:00 Resp 16 01/01/24 10:00 BP 125/84 01/01/24 10:00 Pulse Ox 97 01/01/24 10:00 O2 Del Method Room Air 01/01/24 10:00 01/01/24 01/01/24 01/01/24 06:59 14:59 22:59 Intake Total 1999 5207.417 Balance 1999 4307.417 Weight last 48 hrs Weight 235 lb Physical Exam 2 Narrative: afebrile, VS normal comfortable, awake, alert Abd: soft, nontender. fundus firm Ext: no edema; nontender Urinary Catheter Management: Berrios: Cath Placed During This Visit: yes, but has since been removed by the nurse Reason for Continuing Indwelling Catheter: Decision to DC Catheter Urinary Catheter Date of Insertion: 12/30/23 Urinary Catheter Time of Insertion: 23:40 Date Urinary Catheter Removed: 12/31/23 Time Urinary Catheter Discontinued: 15:45 Data 01/01/24 04:57 A&P Assessment and plan (1) Vaginal delivery: PPD #1 doing well discharge home today instructions and precautions given call/return if fever, chills, headache, blurry vision, nausea, vomiting, abdominal pain; vaginal bleeding or discharge; shortness of breath, chest pain, leg pains or swelling; inability to void, perineal pain or swelling; feelings of depression or mood changes; thoughts of suicide or harming others; inability to care for baby. f/u in 6 weeks or PRN (2) Second degree perineal laceration: Attestations 2 Medical Necessity Statement*: patient s/p vaginal delivery, plan discharge today Coding Level of Care Code Acute Code for Chg Fwd Diagnoses Vaginal delivery O80 Second degree perineal laceration O70.1 Time Spent (min) 20
--- NOTE | 2024-01-01 13:50 | PM.OBGYDC ---
Discharge Providers HAND THERAPIST Date of Admission: 12/30/23 18:09 Date of Discharge: 01/01/24 Attending Provider at Admission: Orlando Chen MD Attending Provider at Discharge: Orlando Chen MD Consults: none Primary HAND THERAPIST: Orlando Chen MD Primary Care Provider: Mary Ann Douglas Diagnoses at Discharge Discharge Diagnosis (1) Vaginal delivery: Details from hospital stay: patient admitted for induction of labor at 39 w 4 d normal labor course delivered vaginally without any complications second-degree perineal laceration repaired there were no complications patient was discharged on day #1 Status: Acute (2) Second degree perineal laceration: Status: Acute Reason for Visit Reason for Visit: IOL Brief History: 23 y.o. admitted at 39 w 4 d for elective induction of labor Hospital Course Hospital Course patient admitted for induction of labor at 39 w 4 d normal labor course delivered vaginally without any complications second-degree perineal laceration repaired there were no complications patient was discharged on day #1 Information Peripartum Data: Delivery Method: Vaginal Laceration description: Perineal - 2nd Degree Episiotomy description: None complications: none Physical Exam Narrative: afebrile, VS normal comfortable, awake, alert Abd: soft, nontender. fundus firm Ext: no edema; nontender Urinary Catheter Management: Berrios: Cath Placed During This Visit: yes, but has since been removed by the nurse Reason for Continuing Indwelling Catheter: Decision to DC Catheter Urinary Catheter Date of Insertion: 12/30/23 Urinary Catheter Time of Insertion: 23:40 Date Urinary Catheter Removed: 12/31/23 Time Urinary Catheter Discontinued: 15:45 History History History 2 Term 1 0 Miscarriages/Ectopic 0 Living Children 1 Discharge Data Studies Completed and Pending Laboratory Results WBC 9.05 10^3/uL (3.29-11.43) 01/01/24 04:57 RBC 4.32 10^6/uL (3.85-5.65) 01/01/24 04:57 Hgb 13.00 g/dL (11.27-16.99) 01/01/24 04:57 Hct 39.2 % (36-47) 01/01/24 04:57 MCV 90.7 fl (85-98) 01/01/24 04:57 MCH 30.1 pg (27-33) 01/01/24 04:57 MCHC 33.2 g/dL (30-55) 01/01/24 04:57 RDW 12.8 % (12.1-15.1) 01/01/24 04:57 Plt Count 134 10^3/cmm (157-399) L 01/01/24 04:57 MPV 10.8 fL (7.4-10.4) H 01/01/24 04:57 Neut % (Auto) 68.1 % 12/30/23 18:15 Lymph % (Auto) 23.4 % 12/30/23 18:15 [place] % (Auto) 6.4 % 12/30/23 18:15 Eos % (Auto) 1.5 % 12/30/23 18:15 Baso % (Auto) 0.3 % 12/30/23 18:15 Neut # (Auto) 5.11 10^3/uL (1.8-7.7) 12/30/23 18:15 Lymph # (Auto) 1.8 10^3/uL (0.8-4.8) 12/30/23 18:15 [place] # (Auto) 0.5 10^3/uL (0.2-0.9) 12/30/23 18:15 Eos # (Auto) 0.1 10^3/uL (0.0-0.8) 12/30/23 18:15 Baso # (Auto) 0.0 10^3/uL (0.0-0.1) 12/30/23 18:15 Nucleated RBC % (auto) 0 % 12/30/23 18:15 Nucleated RBCs # 0.0 /100WBC 12/30/23 18:15 C.trachomatis RNA (TMA) Not detected (NOT DETECTED) 12/30/23 19:30 Chlamydia/GC Comment See note 12/30/23 19:30 N.gonorrhoeae RNA (TMA) Not detected (NOT DETECTED) 12/30/23 19:30 Blood Type O Positive 12/30/23 18:15 Rho(D) Type Rh positive 12/30/23 18:15 Antibody Screen Negative 12/30/23 18:15 Procedures Performed induction of labor vaginal delivery repair of second-degree perineal laceration Vitals Last Vital Signs Temp 97.9 F 01/01/24 10:00 Pulse 72 01/01/24 10:00 Resp 16 01/01/24 10:00 BP 125/84 01/01/24 10:00 Pulse Ox 97 01/01/24 10:00 O2 Del Method Room Air 01/01/24 10:00 Results Labs OB ([facility]): Obstetrics 05/12/23 Blood Type O Positive 12/30/23 Antibody Screen Negative 12/30/23 Hct 39.2 % (36-47) 01/01/24 Hgb 13.00 g/dL (11.27-16.99) 01/01/24 Rho(D) Type Rh positive 12/30/23 Plt Count 134 10^3/cmm (157-399) L 01/01/24 Hep Bs Antigen Non-reactive (Nonreactive) 06/09/23 Hepatitis C Antibody Non-reactive (Nonreactive) 06/09/23 Rubella IgG Antibody > 500.0 IU/mL (0.0-10.0) H 06/09/23 RPR Nonreactive (Nonreactive) 06/09/23 HIV 1&2 Ab & HIV 1 Ag Non-reactive (Non-Reactiv) 06/09/23 C.trachomatis RNA (TMA) Not detected (NOT DETECTED) 12/30/23 N.gonorrhoeae RNA (TMA) Not detected (NOT DETECTED) 12/30/23 Chlamydia/GC Comment See note 12/30/23 Cystic Fibrosis Screen Carrier 06/09/23 Gest Glucose Tolerance 167 mg/dL (70-139) H 10/13/23 Ser , Semi-Qnt 3722.00 mIU/mL 09/17/23 HCG, Qual Positive (Negative) H 05/12/23 Urine Opiates Screen Negative ng/mL (Negative) 06/09/23 Ur Barbiturates Screen Negative ng/mL (Negative) 06/09/23 Ur Phencyclidine Scrn Negative ng/mL (Negative) 06/09/23 Ur Amphetamines Screen Negative ng/mL (Negative) 06/09/23 U Benzodiazepines Scrn Negative ng/mL (Negative) 06/09/23 Urine Cocaine Screen Negative ng/mL (Negative) 06/09/23 U Marijuana (THC) Screen Negative ng/mL (Negative) 06/09/23 Micro Urine Specimen 12/15/23 Discharge Plan Discharge Patient Disposition: Home Condition: Stable Prescriptions: Continued DHA 200 mg capsule PO Abrysvo 120 mcg/0.5 mL recon soln 0.5 ml IM ONCE Qty: 1 0RF buspirone 5 mg tablet See Rx Instructions .ROUTE .COMPLEX PRN (Reason: anxiety) Qty: 20 2RF Rx Instructions: 1 to 2 tablets 1 hour before bedtime as needed for anxiety zolpidem 10 mg tablet 10 mg PO .qhs PRN (Reason: insomnia) Qty: 30 0RF (DME) blood-glucose meter [Blood Glucose Monitoring] Kit See Rx Instructions .MEDSUPPLY Qty: 1 0RF Rx Instructions: please include test strips, lancets, and alcohol wipes zolpidem 5 mg tablet 5 mg PO .qhs PRN (Reason: insomnia) Qty: 20 0RF Rx Instructions: take QHS PRN Discharge Orders: Discharge Order (Routine); Ordered 01/01/24 Ordered By: Orlando Chen Referrals: Orlando Chen MD [Physician] - 6 Weeks (Please call [facility] first thing tomorrow morning to shedule your [address] Chen.) Discharge Diet: Usual diet Discharge Activity: Increase activity as tolerated Patient Instructions: Depression (DC), Perineal Care (DC), Preeclampsia and Eclampsia After Delivery (GEN), Breast Care for the Mother (DC), OB Discharge Report, OB Care at Home, Opioid Safety, Abnormal Bleeding Discharge Attestations HAND THERAPIST Time Spent in Discharge Care*: less than 30 min Coding Level of Care Code Acute Code for Chg Fwd Diagnoses Vaginal delivery O80 Second degree perineal laceration O70.1 Time Spent (min) 20
[2024-01-01 19:00] VITALS: BP 127/88; PULSE 76; RESP 16; TEMP 36.7; O2SAT 97
== END 2024-01-01 19:00 | disposition home or self-care (01) | DRG 807 ==
LOC: OPOB 18:09 → OBGYN 18:09
PROVIDERS: Admitting Provider Obstetrics & Gynecology; PCP Nurse Practitioner Family; Visit Provider Obstetrics & Gynecology
DX: O99.214 Obesity complicating childbirth (principal); Z37.0 Single live birth; E66.01 Morbid (severe) obesity due to excess calories; O99.344 Other mental disorders complicating childbirth; O77.0 Labor and delivery complicated by meconium in amniotic fluid; O70.1 Second degree perineal laceration during delivery; F41.9 Anxiety disorder, unspecified; Z3A.39 39 weeks gestation of pregnancy
CPT/HCPCS: 36415; 51702; 59025; 59409; 85025; 85027; 86850; 86900; 87491; 87591; 96374; 96376; J0290; J2405; J2590; J2795; J3010; J7120; J7121